=== PATIENT | male | born 1935 | race Caucasian/White ===

== ENCOUNTER → 2016-12-06 | Outpatient (CLI) | payer MEDICARE, BC ==
[~2016-12-06] MED LIST: ALLO100T PO; AMLO-145 PO; ASPI81TA3 PO; CARV3.1260 PO; CLOP75TA27 PO; FERR15DR19 PO; IOHEXOL 100 ML ONE; POTA20TA8 PO; PRAV10TA43 PO; SOD CHLORIDE 0.9% 100 ML ONE; VALS1TAB82 PO
--- NOTE | 2016-12-07 16:46 | RADRPT ---
PROCEDURE: CT scan of the abdomen and pelvis with contrast. CT angiogram of the abdomen and pelvis . CLINICAL INDICATION: Abdominal and pelvic pain. History of abdominal aortic aneurysm with stenting . History of endoleak. TECHNIQUE: CT scan of the abdomen, and pelvis with contrast was performed with helical axial secti ons. The patient was scanned during intravenous administration of 100 ml of Omnipaque-350. 2-D cor onal reformatted images were obtained from the axial source images. In addition, 3-D post processin g was performed. Total exam DLP is 860.84 mGy-cm. CTDIvol is 41.08 mGy. One or more of the follow ing dose reduction techniques were used: Automated exposure control, adjustment of the mA and/or kV according to patient size, use of iterative reconstruction technique. COMPARISON: CT angiogram of the abdomen and pelvis dated 06/08/2015. FINDINGS: CT abdomen and pelvis: The lung bases are normal. There is no pleural effusion. The heart is enlarged. There are sternal wires and mediastinal clips. There is no pericardial effusion. The liver is normal in size and attenuation. There is no focal hepatic lesion. Gallstones are present in the gallbladder. There is no evidence of cholecystitis. The bile ducts are normal. The spleen is normal in size. There is no focal splenic lesion. The pancreas is normal with no mass or evidence of pancreatitis. Both adrenals are normal with no enlargement or mass. Both kidneys demonstrate normal contrast enhancement. There is no solid renal mass or hydronephros is. There are small benign bilateral renal cysts. There is no retroperitoneal lymphadenopathy or mass. There is no pelvic lymphadenopathy or mass. The bladder and distal ureters are normal. The periappendiceal region is unremarkable with no evidence of appendicitis. There is diverticulosis of the colon without evidence of diverticulitis. The bowel and mesentery are otherwise normal. There is no free fluid or free gas. CT osseous structures: There are degenerative changes of the spine. There is no fracture or lytic lesion. CT angiogram: There has been previous endovascular repair of an infrarenal abdominal aortic aneurysm with a bifurc ated aortic stent. The stent is in satisfactory position. Previously noted and oblique is no longer present. A large amount of metal embolic material is noted within the thrombosed aneurysm superiorly . This was not present previously. The celiac axis, superior mesenteric artery are well seen and appear normal with no stenosis or occl usion. There is no flow at the origin of the inferior mesenteric artery. Mild calcified plaque is present at the origin of the renal arteries without significant stenosis. The common iliac arteries and external iliac arteries are widely patent. 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 The left internal iliac artery is patent. IMPRESSION: 1. Cardiomegaly. 2. Previous median sternotomy. 3. Gallstones in the gallbladder. No evidence of cholecystitis. 4. Small benign bilateral renal cysts. 5. Diverticulosis of the colon without evidence of diverticulitis. 6. Degenerative changes of the spine. 7. Previous endovascular repair of an infrarenal abdominal aortic aneurysm with bifurcated aortic s tent. Previously noted type 2 endoleak appears to have been embolized an there is no longer an endol eak present. 8. 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 9. Otherwise unremarkable study. RPTAT: [facility] .Mesfin Gutierres MD, MD Date Time Electronically viewed and signed by .Mesfin Gutierres MD, on 12/07/2016 16:46 .R/
== END | disposition home or self-care (01) ==
LOC: C/S 09:03
PROVIDERS: ATTEND Student in an Organized Health Care Education/Training Program
DX: I71.4 Abdominal aortic aneurysm, without rupture (principal)
CPT/HCPCS: 75635; Q9967

== ENCOUNTER 2017-06-22 17:35 | Inpatient (IN) | END 2017-07-24 20:15 | disposition home or self-care (01) | DRG 438 ==

== ENCOUNTER 2017-07-31 17:10 | Inpatient (IN) | END 2017-08-15 16:15 | disposition home or self-care (01) | DRG 439 ==

== ENCOUNTER 2017-12-26 08:06 | Day surgery (SDC) | END 2017-12-26 09:17 | disposition home or self-care (01) ==